=== PATIENT | female | born 1970 | race American Indian/Alaskan Native ===

== ENCOUNTER 2016-11-11 09:53 | Day surgery (SDC) | payer OTHER ==
[2016-11-11] MEDS ORDERED: NACL 0.9% 1000 ML 1,000 ML IV SCH (11:00)
--- NOTE | 2016-11-11 11:07 | Anesthesia Consultation ---
Anesthesia Consult and Med Hx Date of service: 11/11/16 - Airway Anesthetic Teeth Evaluation: Poor ROM Head & Neck: Adequate Mental/Hyoid Distance: Adequate Mallampati Class: Class II Intubation Access Assessment: Probably Good - Pulmonary Exam CTA: Yes - Cardiac Exam Cardiac Exam: RRR - Pre-Operative Health Status ASA Pre-Surgery Classification: ASA3 - Cardiovascular System Hx Hypertension: Yes Hx Heart Attack/AMI: Yes (stents) Hx Angina: No (denies current chest pain or tightness) Hx Percutaneous Transluminal Coronary Angioplasty (PTCA): Yes - Endocrine Hx Insulin Dependent Diabetes: Yes
--- NOTE | 2016-11-11 11:07 | Anesthesia Day of Surgery ---
Anesthesia Day of Surgery - Day of Surgery Patient Examined: Yes Patient H&P Reviewed: Yes Patient is NPO: Yes Beta Blockers: Yes
[2016-11-11] MEDS ORDERED: DIPRIVAN 10 MG/ML IV ONE (11:33)
--- NOTE | 2016-11-11 12:01 | Operative Report ---
Operative Report Operative Report: Date of procedure: 11/11/2016 Procedure: Esophagogastroduodenoscopy with multiple mucosal biopsies Attending physician: Cecil Pickering MD Glassware Maker Demonstrator: Cecil Pickering MD Indication: Patient is a 46-year-old female who presented history of recurrent nausea vomiting epigastric pain. Symptoms have been persistent for protracted period of time. An upper endoscopy is not done to evaluate patient so that treatment may be directed based on findings. Consent: Informed consent was obtained after advising the patient and family regarding nature of this procedure, its indications, potential benefits as well as possible complications including but not limited to bleeding perforation and adverse reaction to medication, infection as well as other cardiopulmonary complications. An informed written and verbal consent was then obtained after due opportunity was provided for questions and answers. Monitoring: Patient was monitored continuously with pulse oximetry and electrocardiographic recordings as well as blood pressure recordings. Vital signs remained stable throughout this procedure with no untoward events. Preoperative assessment: Patient was assessed immediately prior to this procedure for capacity to tolerate monitored anesthesia care and moderate sedation as well as general anesthesia. Patient's ASA classification is 2, Mallampati class is 2, Hyomental distance is 3. Instrument: [employer] video endoscope Medications: Propofol given intravenously in divided doses. For details please refer to anesthesia records. Description of procedure: Patient was placed in the left lateral decubitus position after achieving sedation, the endoscope was introduced into the esophagus under direct vision. It was then advanced beyond the esophagus into the stomach and then beyond the stomach into the duodenum and to the second portion of the duodenum. It was subsequently withdrawn with careful inspection of all mucosal surfaces with the following findings. Findings: Patient had mild erosive esophagitis involving the distal esophagus. There was a small sliding hiatal hernia measuring approximately 2 cm. The Z line was at 38 cm. There was some retained gastric contents which were suctioned off. There was erythema in the gastric antrum with surrounding mucosal edema. Biopsies were obtained from the antrum to rule out gastritis. The Pylorus was widely patulous. The duodenum was normal to second portion. Impression: Mild erosive esophagitis. Hiatal hernia. Retained gastric contents. Widely patulous pyloric channel. Plan: Continue treatment with proton pump inhibitors. Because of the retained gastric contents, patient most likely has underlying gastroparesis. Another consideration in this regard is that patient has underlying history of diabetes which increases the possibility of underlying gastroparesis. Because of this, a gastric emptying study will need to be done in the near future to assess patient further. Additional recommendations will be made in close outpatient follow-up
--- NOTE | 2016-11-11 12:02 | Discharge Summary ---
Short Stay Discharge Plan Activity: advance as tolerated Weight Bearing Status: Weight Bear as Tolerated Diet: regular Follow up with: DANIEL LEE [Primary Care Provider] - 7 Days
--- NOTE | 2016-11-11 12:05 | Post Anesthesia Evaluation ---
- Post Anesthesia Evaluation Patient Participated: Yes Airway Patent: Yes Stable Respiratory Function: Yes Temp > 96.8F: Yes Pain Manageable: Yes Adequeate Hydration: Yes Anesthesia Complications: No
[2016-11-11 12:26] VITALS: BP 143/77
== END 2016-11-11 09:54 | disposition home or self-care (01) ==
LOC: GIO 09:53
PROVIDERS: ATTEND Internal Medicine Gastroenterology
DX: K29.50 Unspecified chronic gastritis without bleeding (principal); K21.0 Gastro-esophageal reflux disease with esophagitis; K44.9 Diaphragmatic hernia without obstruction or gangrene; I10 Essential (primary) hypertension; M13.88 Other specified arthritis, other site; E11.40 Type 2 diabetes mellitus with diabetic neuropathy, unspecified; F17.200 Nicotine dependence, unspecified, uncomplicated; I25.10 Atherosclerotic heart disease of native coronary artery without angina pectoris; Z79.4 Long term (current) use of insulin; Z79.899 Other long term (current) drug therapy; Z95.5 Presence of coronary angioplasty implant and graft; Z80.0 Family history of malignant neoplasm of digestive organs; Z80.1 Family history of malignant neoplasm of trachea, bronchus and lung; Z80.41 Family history of malignant neoplasm of ovary
CPT/HCPCS: 43239; 82962; 88305; 88342; J2704; J7030

== ENCOUNTER 2017-02-03 11:48 | Day surgery (SDC) | payer OTHER ==
[2017-02-03] MEDS ORDERED: NACL 0.9% 1000 ML 1,000 ML IV SCH (13:00)
[2017-02-03] MEDS ORDERED: DIPRIVAN 10 MG/ML IV ONE ×2 (15:22)
--- NOTE | 2017-02-03 15:27 | Anesthesia Consultation ---
Anesthesia Consult and Med Hx Date of service: 02/03/17 - Pulmonary Exam CTA: Yes - Cardiac Exam Cardiac Exam: RRR - Pre-Operative Health Status ASA Pre-Surgery Classification: ASA3 Proposed Anesthetic Plan: MAC - Pulmonary Hx Smoking: Yes (10 cigarettes per day) - Cardiovascular System Hx Hypertension: Yes Hx Heart Attack/AMI: Yes (X2 2009 AND 2013) Hx Angina: No (denies current chest pain or tightness) Hx Percutaneous Transluminal Coronary Angioplasty (PTCA): Yes (4x) - Gastrointestinal Hx Gastroesophageal Reflux Disease: Yes - Endocrine Hx Non-Insulin Dependent Diabetes: Yes (gastroparesis) - Additional Comments Anesthesia Medical History Comments: NAC
--- NOTE | 2017-02-03 15:28 | Anesthesia Day of Surgery ---
Anesthesia Day of Surgery - Day of Surgery Patient Examined: Yes Patient H&P Reviewed: Yes Patient is NPO: Yes Beta Blockers: Yes
[2017-02-03] MEDS ORDERED: WATER FOR IRRIG STERILE ONE (16:19)
[2017-02-03] MEDS ORDERED: WATER FOR IRRIG STERILE IR ONE (16:19)
[2017-02-03 16:30] VITALS: BP 101/74
--- NOTE | 2017-02-03 16:32 | Discharge Summary ---
Short Stay Discharge Plan Activity: advance as tolerated Weight Bearing Status: Weight Bear as Tolerated Diet: regular Additional Instructions: Post Sedation D/C Instructions When you return home you may resume your regular diet unless otherwise directed. -Go directly home from the hospital and rest quietly. You may resume normal activities tomorrow. -Do NOT drive, return to work, operate any machinery or make any important personal or business decisions today. -Do NOT drink any alcohol or take nerve or sleeping drugs. They add to the effects of the medicine still present in your body. Follow up with: DANIEL LEE [Primary Care Provider] - 7 Days
--- NOTE | 2017-02-03 16:32 | Operative Report ---
Operative Report Operative Report: Date of procedure: 02/03/2017 Procedure: Colonoscopy. Attending physician: Cecil Pickering MD Corporate Communications Associate: Cecil Pickering MD Indication: Patient is a 46-year-old female who presents for with rectal bleeding, change in bowel habits and abdominal pain. A colonoscopy service to evaluate patient for colorectal cancer screening. Consent: Informed consent was obtained after advising the patient and family regarding nature of this procedure, its indications, potential benefits as well as possible complications including but not limited to bleeding perforation and adverse reaction to medication, infection as well as other cardiopulmonary complications. An informed written and verbal consent was then obtained after due opportunity was provided for questions and answers. Monitoring: Patient was monitored continuously with pulse oximetry and electrocardiographic recordings as well as blood pressure recordings. Vital signs remained stable throughout this procedure with no untoward events. Preoperative assessment: Patient was assessed immediately prior to this procedure for capacity to tolerate monitored anesthesia care and moderate sedation as well as general anesthesia. Patient's ASA classification is 2, Mallampati class is 2, Hyomental distance is 3. Instrument: [employer] video colonoscope Medications: Propofol given intravenously in divided doses. For details please refer to anesthesia records. Description of procedure: Patient was placed in the left lateral decubitus position after achieving sedation, a digital rectal examination was performed following which the colonoscope was introduced into the anal verge and advanced to the cecum which was identified by the cecal valve, the appendiceal orifice, as well as by the cecal strap and direct transillumination. The colonoscope was subsequently withdrawn with careful inspection of all mucosal surfaces. Patient tolerated this procedure well and was subsequently taken to the recovery room. The following findings were noted. Findings: The entirety of the colon was normal except for scattered retained stool. On the retroflex view at the anal verge, patient had internal hemorrhoids. Impression: Retained stool. Internal hemorrhoids. Plan: High-fiber diet. PRN stool softeners. Repeat colonoscopy in 10 years.
--- NOTE | 2017-02-03 20:28 | Post Anesthesia Evaluation ---
- Post Anesthesia Evaluation Patient Participated: Yes Airway Patent: Yes Stable Respiratory Function: Yes Nausea/Vomiting: No Temp > 96.8F: Yes Pain Manageable: Yes Adequeate Hydration: Yes Anesthesia Complications: No Block Receding Appropriately: Not Applicable Patient on Ventilator: No
== END 2017-02-03 11:49 | disposition home or self-care (01) ==
LOC: GIO 11:48
PROVIDERS: ATTEND Internal Medicine Gastroenterology
DX: K62.5 Hemorrhage of anus and rectum (principal); K59.00 Constipation, unspecified; K64.8 Other hemorrhoids; F17.210 Nicotine dependence, cigarettes, uncomplicated; I10 Essential (primary) hypertension; E11.9 Type 2 diabetes mellitus without complications; F32.9 Major depressive disorder, single episode, unspecified; F41.9 Anxiety disorder, unspecified; Z79.899 Other long term (current) drug therapy; Z95.5 Presence of coronary angioplasty implant and graft
CPT/HCPCS: 45378; 82962; J2704; J7030